=== PATIENT | male | born 1980 | race Caucasian/White ===

== ENCOUNTER 2019-12-10 04:29 | Emergency (ER) | payer OTHER ==
[~2019-12-10] VITALS: Ht 175.3 cm; Wt 77.0 kg
[~2019-12-10 04:29] MED LIST: AMOXICILLIN500 MG OR; NO HOME MEDS; TYLENOL # 31 TAB OR
[2019-12-10 05:26] LABS: HEMATOCRIT 45.6 % (39.0-50.0); HEMOGLOBIN 15.3 g/dl (14.0-18.0); IMMATURE GRANULOCYTES 0.7 % (0.0-5.0); MEAN CELL VOLUME 90.8 fL CALC (80.0-100.0); MEAN CORPUSCULAR HGB 30.5 pG CALC (26.0-32.0); MEAN CORPUSCULAR HGB CONC 33.6 g/dL CAL (32.0-36.0); NEUT# 20.45 thou/uL (1.82-7.42); RED BLOOD COUNT 5.02 mill/uL (4.70-6.10); RED CELL DISTRI WIDTH 13.3 % (11.5-15.5)
[2019-12-10 05:34] LABS: ALBUMIN 4.3 g/dL (3.2-5.0); AMYLASE 97 u/l (30-110); ANION GAP 13 (6-22 (CALC)); BILIRUBIN, TOTAL 0.4 mg/dL (0.0-1.4); BUN 16 mg/dL (9-20); BUN/CREATININE RATIO 21 (12-20 (CALC)); CARBON DIOXIDE 27 mmol/l (22-30); CHLORIDE 97 mmol/l (95-108); CREATININE 0.8 mg/dL (0.7-1.3); GFR > 60 ML/MIN (>=60 (CALC)); GFR FOR AFR.AMER. > 60 ML/MIN (>=60 (CALC)); LIPASE 216 u/l (23-300); POTASSIUM 3.7 mmol/l (3.5-5.1); SGOT/AST 27 u/l (17-59); SODIUM 133 mmol/l (137-146); TOTAL PROTEIN 6.9 g/dL (6.3-8.2)
[2019-12-10 05:36] LABS: ALKALINE PHOSPHATASE 75 u/l (38-126)
[2019-12-10 05:46] LABS: MYOGLOBIN 286 ng/mL (0 - 121)
[2019-12-10 06:59] VITALS: BP 145/84
== END 2019-12-10 07:11 | disposition short-term general hospital (02) | DRG 313 ==
LOC: ED 04:29
PROVIDERS: Emergency Medicine
DX: R07.9 Chest pain, unspecified (principal); R79.89 Other specified abnormal findings of blood chemistry; R94.31 Abnormal electrocardiogram [ECG] [EKG]; D72.829 Elevated white blood cell count, unspecified; I10 Essential (primary) hypertension; F17.200 Nicotine dependence, unspecified, uncomplicated; Z20.828 Contact with and (suspected) exposure to other viral communicable diseases

== ENCOUNTER 2020-10-15 07:05 | Emergency (ER) | payer OTHER ==
[~2020-10-15] VITALS: Ht 175.3 cm; Wt 85.0 kg
[2020-10-15 07:39] LABS: HEMOGLOBIN 13.9 g/dl (14.0-18.0); IMMATURE GRANULOCYTES 0.3 % (0.0-5.0); MEAN CELL VOLUME 92.3 fL CALC (80.0-100.0); MEAN CORPUSCULAR HGB 29.8 pG CALC (26.0-32.0); MEAN CORPUSCULAR HGB CONC 32.3 g/dL CAL (32.0-36.0); NEUT# 8.87 thou/uL (1.82-7.42); RED BLOOD COUNT 4.66 mill/uL (4.70-6.10); RED CELL DISTRI WIDTH 13.9 % (11.5-15.5)
[2020-10-15 08:10] LABS: ALBUMIN 4.1 g/dL (3.2-5.0); ALKALINE PHOSPHATASE 72 u/l (38-126); ANION GAP 8 (6-22 (CALC)); BUN 18 mg/dL (9-20); BUN/CREATININE RATIO 28 (12-20 (CALC)); CARBON DIOXIDE 30 mmol/l (22-30); CHLORIDE 104 mmol/l (95-108); CREATININE 0.6 mg/dL (0.7-1.3); GFR > 60 ML/MIN (>=60 (CALC)); GFR FOR AFR.AMER. > 60 ML/MIN (>=60 (CALC)); POTASSIUM 3.8 mmol/l (3.5-5.1); SGOT/AST 27 u/l (17-59); SODIUM 139 mmol/l (137-146)
[2020-10-15 08:11] LABS: BILIRUBIN, TOTAL 0.1 mg/dL (0.0-1.4); PROTHROMBIN TIME 9.7 SECONDS (9.0-12.5)
[2020-10-15 08:37] LABS: URINE BILIRUBIN - DIPSTICK NEGATIVE (NEGATIVE); URINE BLOOD DIPSTICK NEGATIVE (NEGATIVE); URINE COLOR YELLOW; URINE GLUCOSE - DIPSTICK NEGATIVE (NEGATIVE); URINE KETONE NEGATIVE (NEGATIVE); URINE LEUK ESTERASE NEGATIVE (NEGATIVE); URINE PH 6.5 (4.5-8.0); URINE PROTEIN - DIPSTICK NEGATIVE (NEG-TRACE); URINE SPECIFIC GRAVITY 1.025
[2020-10-15 08:38] LABS: URINE NITRITE - DIPSTICK NEGATIVE (Negative)
[2020-10-15] MEDS ORDERED: NITROGLYCERIN0.4 MG PO (08:59)
[2020-10-15 09:32] VITALS: BP 130/75
== END 2020-10-15 09:47 | disposition left against medical advice (07) | DRG 313 ==
LOC: ED 07:05 → ED-I 08:34 → ED 09:47
PROVIDERS: Family Medicine
DX: R07.9 Chest pain, unspecified (principal); I10 Essential (primary) hypertension; I25.10 Atherosclerotic heart disease of native coronary artery without angina pectoris; I25.2 Old myocardial infarction; F17.200 Nicotine dependence, unspecified, uncomplicated; Z95.5 Presence of coronary angioplasty implant and graft; Z91.19 Patient's noncompliance with other medical treatment and regimen

== ENCOUNTER 2020-10-25 07:06 | Emergency (ER) | payer OTHER ==
[~2020-10-25] VITALS: Ht 175.3 cm; Wt 81.0 kg
[~2020-10-25 07:06] MED LIST changes: +NITROGLYCERIN0.4 MG PO
[2020-10-25 07:42] LABS: HEMATOCRIT 45.5 % (39.0-50.0); HEMOGLOBIN 15.1 g/dl (14.0-18.0); IMMATURE GRANULOCYTES 0.2 % (0.0-5.0); MEAN CELL VOLUME 90.1 fL CALC (80.0-100.0); MEAN CORPUSCULAR HGB 29.9 pG CALC (26.0-32.0); MEAN CORPUSCULAR HGB CONC 33.2 g/dL CAL (32.0-36.0); NEUT# 11.53 thou/uL (1.82-7.42); RED BLOOD COUNT 5.05 mill/uL (4.70-6.10); RED CELL DISTRI WIDTH 13.7 % (11.5-15.5)
[2020-10-25 07:53] LABS: ALBUMIN 4.3 g/dL (3.2-5.0); ALKALINE PHOSPHATASE 71 u/l (38-126); BUN 12 mg/dL (9-20); BUN/CREATININE RATIO 19 (12-20 (CALC)); CARBON DIOXIDE 27 mmol/l (22-30); CREATININE 0.6 mg/dL (0.7-1.3); GFR > 60 ML/MIN (>=60 (CALC)); GFR FOR AFR.AMER. > 60 ML/MIN (>=60 (CALC)); POTASSIUM 3.8 mmol/l (3.5-5.1); SGOT/AST 21 u/l (17-59); SODIUM 140 mmol/l (137-146); TOTAL PROTEIN 7.2 g/dL (6.3-8.2)
[2020-10-25 07:55] LABS: ANION GAP 12 (6-22 (CALC)); BILIRUBIN, TOTAL 0.5 mg/dL (0.0-1.4); CHLORIDE 105 mmol/l (95-108)
[2020-10-25 08:04] LABS: MYOGLOBIN 19 ng/mL (0 - 121)
[2020-10-25 08:52] VITALS: BP 103/71
== END 2020-10-25 09:00 | disposition left against medical advice (07) | DRG 313 ==
LOC: ED 07:06
PROVIDERS: Emergency Medicine
DX: R07.9 Chest pain, unspecified (principal); I10 Essential (primary) hypertension; I25.10 Atherosclerotic heart disease of native coronary artery without angina pectoris; Z95.5 Presence of coronary angioplasty implant and graft; Z91.14 Patient's other noncompliance with medication regimen; Z91.19 Patient's noncompliance with other medical treatment and regimen

== ENCOUNTER 2021-05-27 08:01 | Emergency (ER) | payer OTHER ==
[~2021-05-27] VITALS: Ht 175.3 cm; Wt 80.0 kg
[2021-05-27 08:45] LABS: HEMATOCRIT 44.6 % (39.0-50.0); HEMOGLOBIN 14.5 g/dl (14.0-18.0); IMMATURE GRANULOCYTES 0.2 % (0.0-5.0); MEAN CELL VOLUME 92.7 fL CALC (80.0-100.0); MEAN CORPUSCULAR HGB 30.1 pG CALC (26.0-32.0); MEAN CORPUSCULAR HGB CONC 32.5 g/dL CAL (32.0-36.0); NEUT# 8.44 thou/uL (1.82-7.42); RED BLOOD COUNT 4.81 mill/uL (4.70-6.10); RED CELL DISTRI WIDTH 13.6 % (11.5-15.5)
[2021-05-27 09:23] LABS: ALKALINE PHOSPHATASE 82 u/l (38-126); AMYLASE 122 u/l (30-110); ANION GAP 9 (6-22 (CALC)); BILIRUBIN, TOTAL 0.3 mg/dL (0.0-1.4); BUN 14 mg/dL (9-20); BUN/CREATININE RATIO 20 (12-20 (CALC)); CARBON DIOXIDE 30 mmol/l (22-30); CHLORIDE 102 mmol/l (95-108); CREATININE 0.7 mg/dL (0.7-1.3); GFR > 60 ML/MIN (>=60 (CALC)); GFR FOR AFR.AMER. > 60 ML/MIN (>=60 (CALC)); LIPASE 199 u/l (23-300); POTASSIUM 3.9 mmol/l (3.5-5.1); SGOT/AST 28 u/l (17-59); SODIUM 137 mmol/l (137-146)
[2021-05-27] MEDS ORDERED: LOPRESSOR25 M1 PO (10:31)
[2021-05-27] MEDS ORDERED: CLOPIDOGREL75 MG PO (10:31)
[2021-05-27] MEDS ORDERED: LIPITOR80 M1 PO (10:31)
[2021-05-27] MEDS ORDERED: ZESTRIL5 M1 PO (10:31)
[2021-05-27 10:36] LABS: URINE BILIRUBIN - DIPSTICK NEGATIVE (NEGATIVE); URINE BLOOD DIPSTICK NEGATIVE (NEGATIVE); URINE COLOR YELLOW; URINE GLUCOSE - DIPSTICK NEGATIVE (NEGATIVE); URINE KETONE NEGATIVE (NEGATIVE); URINE LEUK ESTERASE NEGATIVE (NEGATIVE); URINE PROTEIN - DIPSTICK NEGATIVE (NEG-TRACE); URINE SPECIFIC GRAVITY 1.015; URINE UROBILINOGEN - DIPSTICK 0.2 E.U./dL (0.2)
[2021-05-27 10:37] LABS: URINE NITRITE - DIPSTICK NEGATIVE (Negative)
[2021-05-27] MEDS ORDERED: ASPIRIN LOW81 M1 PO (10:37)
[2021-05-27 14:44] VITALS: BP 121/74
== END 2021-05-27 14:44 | disposition home or self-care (01) | DRG 313 ==
LOC: ED 08:01
PROVIDERS: Emergency Medicine
DX: R07.9 Chest pain, unspecified (principal); I10 Essential (primary) hypertension; I25.10 Atherosclerotic heart disease of native coronary artery without angina pectoris; I25.2 Old myocardial infarction; Z95.5 Presence of coronary angioplasty implant and graft
CPT/HCPCS: Q9967

== ENCOUNTER 2022-05-03 08:00 | Emergency (ER) | payer OTHER ==
[~2022-05-03] VITALS: Ht 175.3 cm; Wt 65.3 kg
[~2022-05-03 08:00] MED LIST changes: +ASPIRIN LOW81 M1 PO; +CLOPIDOGREL75 MG PO; +LIPITOR80 M1 PO; +LOPRESSOR25 M1 PO; +ZESTRIL5 M1 PO
[2022-05-03] MEDS ORDERED: VOLTAREN1%GEL TOP (09:31)
[2022-05-03 09:37] VITALS: BP 136/89
== END 2022-05-03 09:58 | disposition home or self-care (01) | DRG 552 ==
LOC: ED 08:00
DX: M54.89 Other dorsalgia (principal)

== ENCOUNTER 2022-06-19 03:54 | Emergency (ER) | payer OTHER ==
[~2022-06-19] VITALS: Ht 175.3 cm; Wt 65.5 kg
[~2022-06-19 03:54] MED LIST changes: +VOLTAREN1%GEL TOP
[2022-06-19] MEDS ORDERED: AMOXICILLIN500 MG PO (04:52)
[2022-06-19 05:02] VITALS: BP 130/73
== END 2022-06-19 05:03 | disposition left against medical advice (07) | DRG 605 ==
LOC: ED 03:54
PROC: 0HQ1XZZ Repair Face Skin, External Approach (ICD-10-PCS; principal; 2022-06-19)
DX: S01.81XA Laceration without foreign body of other part of head, initial encounter (principal); W01.10XA Fall on same level from slipping, tripping and stumbling with subsequent striking against unspecified object, initial encounter; I10 Essential (primary) hypertension; I25.10 Atherosclerotic heart disease of native coronary artery without angina pectoris; I25.2 Old myocardial infarction